=== PATIENT | male | born 1970 | race Caucasian/White ===

== ENCOUNTER 2019-08-08 20:28 | Emergency (ER) | payer OTHER ==
[2019-08-08 20:52] VITALS: BP 128/75
--- NOTE | 2019-08-08 21:12 | UC ---
Skin Complaint HPI - HPI Summary HPI Summary: 49-year-old male presents with complaints of a tick bite to his right chest wall. States that the tick yesterday and removed immediately. Was not engorged. Notes a small circular erythematous lesion at the site of the bite. Denies fever, chills, fatigue, flu-like symptoms, myalgias, joint pain or swelling. - History of Current Complaint Chief Complaint: UCSkin Time Seen by Provider: 08/08/19 20:58 Stated Complaint: TICK Hx Obtained From: Patient Pain Intensity: 0 - Allergy/Home Medications Allergies/Adverse Reactions: Allergies Allergy/AdvReac Type Severity Reaction Status Date / Time No Known Allergies Allergy Verified 08/08/19 20:50 Home Medications: Home Medications NK [No Home Medications Reported] 08/08/19 [History Confirmed 08/08/19] PMH/Surg Hx/FS Hx/Imm Hx Previously Healthy: Yes - denies significant PMH - Surgical History Surgical History: None - Family History Known Family History: Positive: Non-Contributory - Social History Occupation: Employed Full-time Lives: With Family Alcohol Use: None Substance Use Type: None Smoking Status (MU): Never Smoked Tobacco - Immunization History Most Recent Tetanus Shot: UTD Review of Systems All Other Systems Reviewed And Are Negative: Yes Constitutional: Negative: Fever, Chills, Fatigue Skin: Positive: Rash - See HPI Respiratory: Positive: Negative Cardiovascular: Positive: Negative Gastrointestinal: Positive: Negative Genitourinary: Positive: Negative Musculoskeletal: Negative: Arthralgia, Myalgia Neurological: Positive: Negative Is Patient Immunocompromised?: No Physical Exam - Summary Physical Exam Summary: GENERAL APPEARANCE: Well developed, well nourished, alert and cooperative, and appears to be in no acute distress. CARDIAC: Normal S1 and S2. No S3, S4 or murmurs. Rhythm is regular. There is no peripheral edema, cyanosis or pallor. Extremities are warm and well perfused. Capillary refill is less than 2 seconds. Peripheral pulses intact. LUNGS: Clear to auscultation without rales, rhonchi, wheezing or diminished breath sounds. ABDOMEN: Positive bowel sounds. Soft, nondistended, nontender. No guarding or rebound. No masses or hepatosplenomegally. MUSKULOSKELETAL: ROM intact to all extremities. No joint erythema or tenderness. Normal muscular development. Normal gait. SKIN: Skin normal color, texture and turgor. 1.5 cm circular erythematous lesion with a central area of punctate dark red excoriation to the right lateral chest wall. Triage Information Reviewed: Yes Vital Signs: Initial Vital Signs Temp 98.7 F 08/08/19 20:50 Pulse 77 08/08/19 20:50 Resp 18 08/08/19 20:50 BP 128/75 08/08/19 20:50 Pulse Ox 100 08/08/19 20:50 Vital Signs Reviewed: Yes Course/Dx - Course Course Of Treatment: 49-year-old male presents with complaints of a tick bite to his right chest wall. States that the tick yesterday and removed immediately. Was not engorged. Notes a small circular erythematous lesion at the site of the bite. Denies fever, chills, fatigue, flu-like symptoms, myalgias, joint pain or swelling. Afebrile. Vital signs stable. Patient had a 1.5 cm circular erythematous lesion with a central area of punctate dark red excoriation to his right lateral chest wall consistent with a localized reaction to a tick bite. Discussed with patient that based on his history and the appearance of the lesion that prophylactic antibiotics were not warranted at this time and I'm recommending watchful waiting. Anticipatory guidance, signs and symptoms of Lyme disease, and warning symptoms were reviewed with the patient. Verbalizes understanding and agrees with plan of care. - Differential Diagnoses - Skin Complaint Differential Diagnoses: Local Allergic Reaction, Tick Born Illness - Diagnoses Provider Diagnosis: Tick bite of right side of chest wall Discharge ED - Sign-Out/Discharge Documenting (check all that apply): Patient Departure All imaging exams completed and their final reports reviewed: No Studies - Discharge Plan Condition: Stable Disposition: HOME Patient Education Materials: Tick Bite (ED) Referrals: Yaya Melgar MD [Primary Care Provider] - If Needed Additional Instructions: Ticks transmit infection only after they have attached and then taken a blood meal from their new host. A tick that has not attached cannot not pass any infection. Since the deer tick that transmits Lyme disease typically feeds for more than 36 hours before transmitting the organisim that causes Lyme disease, the risk of acquiring Lyme disease from an tick bite is extremely small, even in an area where the disease is common. There is no benefit of blood testing for Lyme disease at the time of the tick bite because even people who become infected will not have a positive blood test until approximately two to six weeks after the tick bite. To try to avoid getting bitten by a tick, you can: * Wear shoes, long-sleeved shirts, and long pants when you go outside. Keep ticks away from your skin by tucking your pants into your socks. * Wear light colors so you can spot any ticks that get on your clothes. * Wear bug spray or cream that contains DEET. (Do not use DEET on babies younger than 2 months.) On your clothes and gear, you can use bug repellents that have a chemical called "permethrin." * Shower within 2 hours of being outdoors if you think you have been in an area where there are ticks. * Put dry clothes briefly (for about 4 minutes) in a dryer after being outdoors. * Check your clothes and body for ticks after being outdoors. Be sure to check your scalp, waist, armpits, groin, and backs of your knees. Check your children , too. After a tick bite, you will need to monitor for signs of Lyme disease over the nexter several weeks even if you have been given antibiotics to prevent the infection. Seek immediate medical attention if you develop a bullseye rash, fever, flu-like symptoms including headache, stiff neck, fatigue, muscle aches, joint pain or swelling. - Billing Disposition and Condition Condition: STABLE Disposition: Home - Attestation Statements Provider Attestation: This patient was not seen by me. ABNER
== END 2019-08-08 21:21 | disposition home or self-care (01) ==
LOC: UCCORT 20:28
DX: S20.361A Insect bite (nonvenomous) of right front wall of thorax, initial encounter (principal); W57.XXXA Bitten or stung by nonvenomous insect and other nonvenomous arthropods, initial encounter; Y92.9 Unspecified place or not applicable
CPT/HCPCS: 99201; G0463

== ENCOUNTER 2019-08-31 20:51 | Emergency (ER) | payer OTHER ==
[2019-08-31 21:14] VITALS: BP 156/85
--- NOTE | 2019-08-31 21:44 | UC ---
Minor Trauma HPI - HPI Summary HPI Summary: Pt presents with c/o left thumb pain and swelling, and laceration after dropping block of wood on thumb today ~ 1630 . - History of Current Complaint Chief Complaint: UCSkin Stated Complaint: LEFT THUMB INJURY Time Seen by Provider: 08/31/19 21:32 Hx Obtained From: Patient Onset/Duration: Sudden Onset, Still Present Onset Of Pain: Immediate Severity Initially: Moderate Severity Currently: Moderate Pain Intensity: 3 Mechanism Of Injury: Blunt Trauma Aggravating Factor(s): Movement Alleviating Factor(s): Compression Associated Signs And Symptoms: Positive: Ecchymosis, Swelling - Risk Factors Compartment Syndrome Risk Factors: Pain - Allergies/Home Medications Allergies/Adverse Reactions: Allergies Allergy/AdvReac Type Severity Reaction Status Date / Time No Known Allergies Allergy Verified 08/31/19 21:14 Home Medications: Home Medications Ibuprofen TAB* [Advil TAB*] 2 tab PO ONCE 08/31/19 [History Confirmed 08/31/19] PMH/Surg Hx/FS Hx/Imm Hx Previously Healthy: Yes - Surgical History Surgical History: Yes Surgery Procedure, Year, and Place: R ring finger and L middle finger reattachment - Family History Known Family History: Positive: Non-Contributory - Social History Occupation: Employed Full-time Lives: With Family Alcohol Use: None Substance Use Type: None Smoking Status (MU): Never Smoked Tobacco Amount Used/How Often: 1 can/day Have You Smoked in the Last Year: Yes - Immunization History Most Recent Tetanus Shot: UTD Vaccination Up to Date: Yes Review of Systems All Other Systems Reviewed And Are Negative: Yes Constitutional: Positive: Negative Skin: Positive: Bruising, Other - subungal hematoma, trauma to left distal thumb Eyes: Positive: Negative ENT: Positive: Negative Respiratory: Positive: Negative Cardiovascular: Positive: Negative Gastrointestinal: Positive: Negative Genitourinary: Positive: Negative Motor: Positive: Decreased ROM Neurovascular: Positive: Negative Musculoskeletal: Positive: Arthralgia, Decreased ROM, Edema, Myalgia Neurological: Positive: Negative Psychological: Positive: Negative Is Patient Immunocompromised?: No Physical Exam Triage Information Reviewed: Yes Appearance: Pain Distress Vital Signs: Initial Vital Signs Temp 99.3 F 08/31/19 21:09 Pulse 72 08/31/19 21:09 Resp 18 08/31/19 21:09 BP 156/85 08/31/19 21:09 Pulse Ox 98 08/31/19 21:09 Vital Signs Reviewed: Yes Eye Exam: Normal ENT Exam: Normal Dental Exam: Normal Respiratory: Positive: No respiratory distress Musculoskeletal: Positive: Strength Limited @ - left thumb, ROM Limited @ - left thumb, Edema @ - left thumb Neurological Exam: Normal Psychological Exam: Normal Skin Exam: Other - minor trauma to left distal thumb, subungal hematoma Minor Trauma Course/Dx - Course Course Of Treatment: I discussed with the pt my concern for fracture and need to follow u p with an orthopedic provider. pt verbalized understanding and agreed to plan of care. - Differential Dx/Diagnosis Differential Diagnosis/HQI/PQRI: Contusion(s), Fracture, Hematoma(s) Provider Diagnosis: Fracture of thumb, left, open Discharge ED - Sign-Out/Discharge Documenting (check all that apply): Patient Departure All imaging exams completed and their final reports reviewed: No - Discharge Plan Condition: Stable Disposition: HOME Prescriptions: Cephalexin CAP* [Keflex 500 CAP*] 500 mg PO Q6H #30 cap Patient Education Materials: Thumb Fracture (ED), Subungual Hematoma (ED) Referrals: Yaya Melgar MD [Primary Care Provider] - If Needed - Billing Disposition and Condition Condition: STABLE Disposition: Home
[2019-08-31] MEDS ORDERED: Cephalexin CAP* 500 MG PO ONE (22:21)
--- NOTE | 2019-09-01 10:14 | UC ---
- Progress Note Progress Note: Per Dr. Nelson, no fracture of left thumb seen. Reviewed dx of fracture made by Bibi Agarwal. Please advise patient that no fracture was seen; should follow up for re- evaluation as referred given description of injury. Should continue use of antibiotic. Course/Dx - Diagnoses Provider Diagnoses: Fracture of thumb, left, open Discharge ED - Sign-Out/Discharge Documenting (check all that apply): Patient Departure All imaging exams completed and their final reports reviewed: Yes - Discharge Plan Condition: Stable Disposition: HOME Prescriptions: Cephalexin CAP* [Keflex 500 CAP*] 500 mg PO Q6H #30 cap Patient Education Materials: Subungual Hematoma (ED), Thumb Fracture (ED) Referrals: Andi Garcia MD [Medical Doctor] - As Soon As Possible Ricki Parson MD [Medical Doctor] - As Soon As Possible Yaya Melgar MD [Primary Care Provider] - If Needed Additional Instructions: Please follow up with an orthopedic provider as soon as possible. - Billing Disposition and Condition Condition: STABLE Disposition: Home
== END 2019-08-31 22:37 | disposition home or self-care (01) ==
LOC: UCCORT 20:51
DX: S62.502A Fracture of unspecified phalanx of left thumb, initial encounter for closed fracture (principal); S61.012A Laceration without foreign body of left thumb without damage to nail, initial encounter; W20.8XXA Other cause of strike by thrown, projected or falling object, initial encounter; Y92.9 Unspecified place or not applicable
CPT/HCPCS: 17250; 99212; A9270-GY; G0463